=== PATIENT | female | born 1990 | race Caucasian/White ===

== ENCOUNTER → 2017-01-11 | Outpatient (CLI) | payer OTHER ==
--- NOTE | 2017-01-11 15:58 | RADIOLOGY REPORT PS360 ---
PROCEDURE: 2-D M-mode and color Doppler study INDICATIONS FOR THE TEST: Chest pain+ COPD Heart Murmur Tobacco Smoking Palpitations+ Fatigue+ Syncope Edema+ Hypertension Diabetes Mellitus Rheumatic Fever SOB JURADO Obesity Hyperlipidemia Family History HD Additional History Joint edema PATIENT INFORMATION HEIGHT: 68 WEIGHT: 270 GENDER: Female B/P: 144/92 2-D/M-MODE INTERPRETATION: 2-D MEASUREMENTS OBSERVED VALUES IN CMS Right Ventricular Dimension (RVDd) 2.2 Interventricular Septum (Thickness)(IVsd) 1.1 Left Ventricular Internal Dimensions(LVIDd) 5.1 Left Ventricular Posterior Wall (Thickness)(LVPWd) 1.1 Aortic Root 2.1 Aortic Cusp Separation 2.2 Left Atrial Dimensions (LAD) 4.1 2D 1. Left atrium is mildly enlarged, left ventricle is normal size, there is no concentric left ventricular hypertrophy, visually estimated ejection fraction 55% with no obvious regional wall motion abnormality. 2. The right atrium and right ventricle are mildly enlarged with normal contractility. 3. The aortic valve is minimally thickened and fibrosed. 4. The mitral and tricuspid valve leaflets are minimally thickened. 5. The pulmonic valve is not well visualized. 6. No significant pericardial effusion noted. DOPPLER INTERROGATION: Doppler interrogation of the aortic mitral and tricuspid valvular presence of mild mitral and tricuspid regurgitation, tricuspid and jet velocity insufficient for calculation of the right ventricular systolic pressure, diastolic parameters are within normal range. CONCLUSION: 1. Mild biatrial enlargement, normal left ventricular size, preserved left ventricular systolic function, visually estimated ejection fraction 55% with no obvious regional wall motion abnormality, diastolic parameters are within normal range. 2. Mildly enlarged right ventricle with normal contractility. 3. Mild mitral and tricuspid regurgitation. 4. No significant pericardial effusion noted.
== END ==
LOC: RT 10:42
DX: R00.2 Palpitations (principal); R21 Rash and other nonspecific skin eruption

== ENCOUNTER 2017-05-30 01:57 | Emergency (ER) | payer OTHER ==
[~2017-05-30] VITALS: Ht 175.3 cm; Wt 136.1 kg
--- OUTSIDE RECORDS SUMMARY | 2017-05-30 02:03 | External Medical Summary Rpt | CCD ---
Author Author , DEEP LOPEZ Address Unknown Phone [email or web address] Purpose Continuity of Care Document - 01-06-2017 through 2016 Results Labs Lab Lab Date Result Refere Interp Status Commen Order Detail nces retati t Range on Helicobacter pylori Ag [Presence] in Stool by Immunoassay (02-04-2017 08:30) Helicob Negativ Negativ complet acter 017 e e ed pylori 08:30 Ag [Presen ce] in Stool by Immunoa ssay
--- OUTSIDE RECORDS SUMMARY | 2017-05-30 02:03 | External Medical Summary Rpt | CCD ---
Author Author [employer] Organization [employer] Address Unknown Phone Unavailable Purpose Continuity of Care Document - through 2016
--- OUTSIDE RECORDS SUMMARY | 2017-05-30 02:03 | External Medical Summary Rpt | CCD ---
Author Author , DEEP LOPEZ Address Unknown Phone [email or web address] Purpose Continuity of Care Document - 01-06-2017 through 2016 Results Labs Lab Lab Date Result Refere Interp Status Commen Order Detail nces retati t Range on Helicobacter pylori Ag [Presence] in Stool by Immunoassay (02-04-2017 08:30) Helicob Negativ Negativ complet acter 017 e e ed pylori 08:30 Ag [Presen ce] in Stool by Immunoa ssay
--- OUTSIDE RECORDS SUMMARY | 2017-05-30 02:04 | External Medical Summary Rpt | CCD ---
Demographics Preferred Language Georgian Marital Status Unknown Religion Affiliation Unknown Race Unknown Ethnic Group Unknown Author Author , JESSICA LOPEZ Address Unknown Phone Immunization Unable to retrieve immunization data due to connection failure with Immunization Registry. Please try again later.
--- OUTSIDE RECORDS SUMMARY | 2017-05-30 02:04 | External Medical Summary Rpt | CCD ---
Demographics Preferred Language Portuguese Marital Status Unknown Yazidism Affiliation Unknown Race Unknown Ethnic Group Unknown Author Author , JESSICA LOPEZ Address Unknown Phone Immunization Unable to retrieve immunization data due to connection failure with Immunization Registry. Please try again later.
--- OUTSIDE RECORDS SUMMARY | 2017-05-30 02:05 | External Medical Summary Rpt ---
Author Author [employer], [employer] Organization [employer] Address Unknown Phone Unavailable Results Helicobacter pylori Ag [Presence] in Stool by Immunoassay Observa Value Referen Units Interpr Notes Date tion ce etation Range Helicob Negativ Negativ No No Perform Feb 04 acter e e informa informa ed at: 2016 pylori tion in tion in BN - 8:30 AM Ag source source [facility] [Presen data data ce] in [place] [address] by [facility] [place], [place] [address] Directo r: Alonso Oropeza MD, Phone: [phone] Antinuclear Antibodies, IFA Observa Value Referen Units Interpr Notes Date tion ce etation Range Nuclear . No No Negative Feb 03 Ab informati informati 2016 3:44 [Titer] on in on in <1:80Bord PM in Serum source source riaz by data data 1:80Posit Immunoflu radha orescence >1:80Perf ormed at: CB - [facility] [place] [address] [place] [id number] Circular Sawyer Helper: Mark Juarez PhD, Phone: [phone] CBC W Auto Differential panel in Blood Observa Value Referen Units Interpr Notes Date tion ce etation Range Basophils 0 - 0.2 K/MM3 Normal No Feb 03 informati 2016 3:44 [#/volume on in PM ] in source Blood by data Automated count Basophils 0.1 - 2.0 % Normal No Feb 03 informati 2016 3:44 leukocyte on in PM s in source Blood by data Automated count Eosinophi 0.0 - 0.4 K/mm3 Normal No Feb 03 ls informati 2016 3:44 [#/volume on in PM ] in source Blood by data Automated count Eosinophi 0.1 - % Normal No Feb 03 ls/100 12.0 informati 2016 3:44 leukocyte on in PM s in source Blood by data Automated count Granulocy 1.8 - 7.8 K/mm3 Normal No Feb 03 paul informati 2016 3:44 [#/volume on in PM ] in source Blood by data Automated count Granulocy 37.0 - % Normal No Feb 03 paul/100 80.0 informati 2016 3:44 leukocyte on in PM s in source Blood by data Automated count Hematocri 37.0 - % Normal No Feb 03 t [Volume 47.0 informati 2016 3:44 on in PM Fraction] source of Blood data Hemoglobi 12.2 - g/dL Normal No Feb 03 n 16.2 informati 2016 3:44 [Mass/vol on in PM ume] in source Blood data Lymphocyt 0.7 - 4.5 K/mm3 Normal No Feb 03 es informati 2016 3:44 [#/volume on in PM ] in source Unspecifi data ed specimen by Automated count Lymphocyt 10 - 50.0 % Normal No Feb 03 es 2016 3:44 [#/volume on in PM ] in source Unspecifi data ed specimen by Automated count Erythrocy 27 - 31.2 pg Normal No Feb 03 te mean ati 2016 3:44 corpuscul on in PM ar source hemoglobi data n [Entitic mass] Erythrocy 31.8 - g/dl Normal No Feb 03 te mean 35.4 informati 2016 3:44 corpuscul on in PM ar source hemoglobi data n concentra tion [Mass/vol ume] by Automated count Erythrocy 82.2 - fl Normal No Feb 03 te mean 97.8 informati 2016 3:44 corpuscul on in PM ar volume source [Entitic data volume] by Automated count Monocytes 0.1 - 1.0 K/mm3 Normal No Feb 03 informati 2016 3:44 [#/volume on in PM ] in source Blood by data Automated count Monocytes 1.7 - 9.3 % Normal No Feb 03 /100 informati 2017 3:44 leukocyte on in PM s in source Blood by data Automated count Platelet 7.4 - fl Low No Feb 03 mean 10.4 informati 2016 3:44 volume on in PM [Entitic source volume] data in Blood by Automated count Platelets 142 - 424 K/mm3 High No Feb 03 informati 2016 3:44 [#/volume on in PM ] in source Blood data Erythrocy 4.2 - 5.4 M/mm3 Normal No Aug 2 paul informati 2016 3:44 [#/volume on in PM ] in source Amniotic data fluid Erythrocy 11.5 - % Normal No Feb 03 te 17.5 informati 2016 3:44 distribut on in PM ion width source [Entitic data volume] by Automated count Leukocyte 4.8 - K/MM3 High No Feb 2 s 10.8 informati 2016 3:44 [#/volume on in PM ] in source Blood data Comprehensive metabolic 2000 panel in Serum or Plasma Observa Value Referen Units Interpr Notes Date tion ce etation Range Albumin/G 1.1 - 1.8 No Low No Feb 03 lobulin informati informati 2016 3:44 [Mass on in on in PM ratio] in source source Serum or data data Plasma Albumin 3.4 - 5.0 gm/dL Normal No Feb 03 [Mass/vol informati 2016 3:44 ume] in on in PM Serum or source Plasma data Alkaline 46 - 116 U/L Normal No Feb 03 phosphata informati 2016 3:44 se on in PM [Enzymati source c data activity/ volume] in Serum or Plasma Bilirubin 0.2 - 1.0 mg/dL Normal No Feb 03 .total informati 2016 3:44 [Mass/vol on in PM ume] in source Serum or data Plasma Urea 7 - 18 mg/dL Normal No Feb 03 nitrogen informati 2016 3:44 [Mass/vol on in PM ume] in source Serum or data Plasma Calcium 8.5 - mg/dL Normal No Feb 03 [Mass/vol 10.1 informati 2016 3:44 ume] in on in PM Serum or source Plasma data Chloride 98 - 107 mmoL/L Normal No Feb 03 [Moles/vo informati 2016 3:44 lume] in on in PM Serum or source Plasma data Carbon 21.0 - mmoL/L Normal No Feb 03 dioxide, 32.0 informati 2016 3:44 total on in PM [Moles/vo source lume] in data Serum or Plasma Creatinin 0.55 - mg/dL Normal No Feb 03 e 1.02 informati 2016 3:44 [Mass/vol on in PM ume] in source Serum or data Plasma Estimated 59- ML/MIN No REFERENCE Feb 2 informati RANGE: 2017 3:44 glomerula on in >60 PM r source ML/MIN/1. filtratio data 73 SQUARE n rate METERSIf (GF this patient is -A merican, then multiply theresult by 1.210. Globulin 1.3 - 3.2 gm/dL High No Feb 03 [Mass/vol informati 2016 3:44 ume] in on in PM Serum source data Glucose 74 - 106 mg/dL Normal No Feb 03 [Mass/vol informati 2016 3:44 ume] in on in PM Serum or source Plasma data Potassium 3.5 - 5.1 mmoL/L Normal No Feb 03 informati 2016 3:44 [Moles/vo on in PM lume] in source Serum or data Plasma Sodium 136 - 145 mmoL/L Normal No Feb 03 [Moles/vo informati 2016 3:44 lume] in on in PM Serum or source Plasma data Aspartate 15 - 37 U/L Low No Feb 03 informati 2016 3:44 aminotran on in PM sferase source [Enzymati data c activity/ volume] in Serum or Plasma Alanine 12 - 78 U/L Normal No Feb 03 aminotran informati 2016 3:44 sferase on in PM [Enzymati source c data activity/ volume] in Serum or Plasma Protein 6.4 - 8.2 gm/dL Normal No Feb 03 [Mass/vol informati 2016 3:44 ume] in on in PM Serum or source Plasma data Thyrotropin [Units/volume] in Serum or Plasma Observa Value Referen Units Interpr Notes Date tion ce etation Range Thyrotrop 0.358 - uIU/ml No No Feb 03 in 3.740 informati informati 2016 3:44 [Units/vo on in on in PM lume] in source source Serum or data data Plasma Streptolysin O Ab [Units/volume] in Serum Observa Value Referen Units Interpr Notes Date tion ce etation Range Streptoly 0.0 - IU/mL No Performed Jan 06 sin O Ab 200.0 informati at: CB 2017 5:43 [Units/vo on in - [facility] PM lume] in source Serum data [place] [address] [place], [place] [id number] Circular Sawyer Helper: Mark Juarez PhD, Phone: [phone]
--- OUTSIDE RECORDS SUMMARY | 2017-05-30 02:05 | External Medical Summary Rpt ---
[...] source [facility] [Presen data data ce] in [place] [id number] [facility] [place], [place] [address] Directo r: Alonso Oropeza MD, Phone: [phone] Antinuclear Antibodies, IFA Observa Value Referen Units Interpr Notes Date tion ce etation Range Nuclear . No No Negative Feb 03 Ab informati informati 2016 3:44 [Titer] on in on in <1:80Bord PM in Serum source source riaz by data data 1:80Posit Immunoflu radha orescence >1:80Perf ormed at: CB - [facility] [place] [address] [place] [id number] Manager Service Desk: Mark Juarez PhD, Phone: [phone] CBC W Auto Differential panel in [...] [facility] PM lume] in source Serum data [place] [address] [place], [place] [id number] Manager Service Desk: Mark Juarez PhD, Phone: [phone]
--- NOTE | 2017-05-30 02:11 | Emergency Room Report ---
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 N Clinical Suspician of Infection? Y Mental Status: 1 - Regular (Normal Baseline) Sepsis Risk:Possible Sepsis Risk Have you (or family members/close friends) recently traveled outside the [place]? N If Yes, where/when: Have you had exposure to infectious disease within the past month? N TB? Other? Specify: Comment Patient complains of swelling of the LEFT side of her neck with a sensation of sore throat and swelling in the throat. She has been having recurrent problems with urticaria and areas of what sounds like angioedema since November. She was initially seen here in the urgent treatment center for the symptoms on the bottom of her feet and was referred to a forklift operator. The forklift operator referred her to a software applications architect. Rheumatology referred her to an dispatcher service or work/pool coordinator, Dr. Stern in [place], who did ALLERGY testing. A cause has not been found. She has been on multiple different antihistamines, currently just takes Dolores as needed. She has been on prednisone a couple of times. This is the first time she has had the symptoms that seem to be affecting her throat. She has a large area of angioedema on the LEFT side of her neck which started tonight along with the feeling of swelling in her throat. Not much itching, she says the areas normally itch only towards the hand when they begin to resolve. ALLERGIES Coded Allergies: No Known Allergies (08/22/15) History Medical History General CAD? No Angina: No [place]: No Hypertension? No Hyperlipidemia? No CHF? No DVT? No PE? No COPD? No Asthma? No Anemia? No GERD? No Gastric ulcers? No GI Bleed? No Hernia? No Thyroid Problems? No Hypothyroidism? No CVA? No Seizures? No Diabetes? No Renal Insuffiency? No End Stage Renal Disease? No UTI? No Stones? No BPH? No GB Disease: No Nephritic Syndrome? No Asplenia? No Hepatitis? No Sickle Cell Disease? No Arthritis? No Migraines? No Cataracts? No Glaucoma? No MRSA? No HIV? No TB? No Anxiety? No Depression? No Cancer? No More? 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 She has come to the emergency department previously, not as a patient, when she had angioedema type lesions on her chin and scalp, viewed by me. She reports that these resolve the next day. The area currently on her neck is the same in appearance as the ones she had on her chin and scalp previously. Review of Systems All Other Systems Reviewed and Negative Constitutional denies fever ENT see HPI. Skin see HPI Physical Exam Vital Signs Vital Signs Date Time Temp Pulse Resp B/P Pulse O2 O2 Flow FiO2 Ox Delivery Rate 05/30 0416 98.5 79 14 131/80 97 05/30 0415 98.5 79 14 131/80 97 05/30 0312 83 14 121/63 96 05/30 0200 98.1 98 20 130/77 96 General Appearance no apparent distress Eye Exam - bilateral eye normal exam, bilateral eye PERRL, bilateral eye EOMI Ear, Nose, Throat Oropharynx appears normal. No edema of the oral mucous membranes or tongue. No edema of the lips. Neck there is an area of edema and mild erythema on the LEFT side of her neck consistent with an area of angioedema. Respiratory Status Yes: trachea midline, chest symmetrical, non tender chest. No: respiratory distress. Lung Sounds bilateral: normal breath sounds, lungs clear. 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 No Results/Orders Current Medication Orders Sig/Sony Start time Last Medication Dose Route Stop Time Status Admin Diphenhydramine HCl 25 MG ONCE ONE 05/30 230 DC 05/30 IV 05/30 231 023 Epinephrine HCl 0.3 MG ONCE ONE 05/30 230 DC 05/30 SC 05/30 231 023 Famotidine 20 MG ONCE ONE 05/30 230 DC 05/30 IV 05/30 231 023 Famotidine 0 .STK-MED ONE 05/30 230 DC IV Methylprednisolone 125 MG ONCE ONE 05/30 230 DC 05/30 Sodium Succinate IV 05/30 Sodium Chloride 10 ML PRN PRN 05/30 230 DCD IV 05/31 220 Epinephrine HCl 0 .STK-MED ONE 05/30 229 DC .ROUTE Methylprednisolone 0 .STK-MED ONE 05/30 229 DC Sodium Succinate .ROUTE Diphenhydramine HCl 0 .STK-MED ONE 05/30 228 DC .ROUTE Orders Procedure Date/time Status IV SALINE LOCK 05/30 221 Active CULTURE, THROAT 05/30 207 Active STREP SCREEN THROAT 05/30 207 Complete Progress - 4:00 AM: Symptoms improved. Departure Departure Disposition DC Home or Self Care(routine) Clinical Impression Primary Impression: Angioedema Qualifiers: Encounter type: initial encounter Qualified Code: T78.3XXA - Angioneurotic edema, initial encounter Secondary Impressions: Urticaria Condition STABLE Referrals Johny Khoury MD (Family) Patient Instructions DI for Angioedema, DI for Hives Additional Instructions Benadryl, 25 mg every 6 hours for 5 days Prednisone as prescribed. Pepcid 20 mg twice a day for 5 days. Additional instructions for ALLERGIC REACTION: See your physician as soon as possible for further evaluation. Return immediately if severe intolerable rash or itching, trouble breathing, or faintness. Prescriptions Current Visit Scripts Prednisone (Prednisone 20MG Tab) 40 MG PO DAILY #10 TAB ED Critical Care Critical Care No at [id number]
--- NOTE | 2017-05-30 02:11 | Emergency Room Report ---
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 N Clinical Suspician of Infection? Y Mental Status: 1 - Regular (Normal Baseline) Sepsis Risk:Possible Sepsis Risk Have you (or family members/close friends) recently traveled outside the [place]? N If Yes, where/when: Have you had exposure to infectious disease within the past month? N TB? Other? Specify: Comment Patient complains of swelling of the LEFT side of her neck with a sensation of sore throat and swelling in the throat. She has been having recurrent problems with urticaria and areas of what sounds like angioedema since November. She was initially seen here in the urgent treatment center for the symptoms on the bottom of her feet and was referred to a manager social media. The manager social media referred her to a commissioner of officials. Rheumatology referred her to an plate cleaner/instructional services specialist, Dr. Stern in [place], who did ALLERGY testing. A cause has not been found. She has been on multiple different antihistamines, currently just takes Dolores as needed. She has been on prednisone a couple of times. This is the first time she has had the symptoms that seem to be affecting her throat. She has a large area of angioedema on the LEFT side of her neck which started tonight along with the feeling of swelling in her throat. Not much itching, she says the areas normally itch only towards the hand when they begin to resolve. ALLERGIES Coded Allergies: No Known Allergies (08/22/15) History Medical History General CAD? No Angina: No ND: No Hypertension? No Hyperlipidemia? No CHF? No DVT? No PE? No COPD? No Asthma? No Anemia? No GERD? No Gastric ulcers? No GI Bleed? No Hernia? No Thyroid Problems? No Hypothyroidism? No CVA? No Seizures? No Diabetes? No Renal Insuffiency? No End Stage Renal Disease? No UTI? No Stones? No BPH? No GB Disease: No Nephritic Syndrome? No Asplenia? No Hepatitis? No Sickle Cell Disease? No Arthritis? No Migraines? No Cataracts? No Glaucoma? No MRSA? No HIV? No TB? No Anxiety? No Depression? No Cancer? No More? 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 She has come to the emergency department previously, not as a patient, when she had angioedema type lesions on her chin and scalp, viewed by me. She reports that these resolve the next day. The area currently on her neck is the same in appearance as the ones she had on her chin and scalp previously. Review of Systems All Other Systems Reviewed and Negative Constitutional denies fever ENT see HPI. Skin see HPI Physical Exam Vital Signs Vital Signs Date Time Temp Pulse Resp B/P Pulse O2 O2 Flow FiO2 Ox Delivery Rate 05/30 0416 98.5 79 14 131/80 97 05/30 0415 98.5 79 14 131/80 97 05/30 0312 83 14 121/63 96 05/30 0200 98.1 98 20 130/77 96 General Appearance no apparent distress Eye Exam - bilateral eye normal exam, bilateral eye PERRL, bilateral eye EOMI Ear, Nose, Throat Oropharynx appears normal. No edema of the oral mucous membranes or tongue. No edema of the lips. Neck there is an area of edema and mild erythema on the LEFT side of her neck consistent with an area of angioedema. Respiratory Status Yes: trachea midline, chest symmetrical, non tender chest. No: respiratory distress. Lung Sounds bilateral: normal breath sounds, lungs clear. 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 No Results/Orders Current Medication Orders Sig/Sony Start time Last Medication Dose Route Stop Time Status Admin Diphenhydramine HCl 25 MG ONCE ONE 05/30 230 DC 05/30 IV 05/30 231 023 Epinephrine HCl 0.3 MG ONCE ONE 05/30 230 DC 05/30 SC 05/30 231 023 Famotidine 20 MG ONCE ONE 05/30 230 DC 05/30 IV 05/30 231 023 Famotidine 0 .STK-MED ONE 05/30 230 DC IV Methylprednisolone 125 MG ONCE ONE 05/30 230 DC 05/30 Sodium Succinate IV 05/30 Sodium Chloride 10 ML PRN PRN 05/30 230 DCD IV 05/31 220 Epinephrine HCl 0 .STK-MED ONE 05/30 229 DC .ROUTE Methylprednisolone 0 .STK-MED ONE 05/30 229 DC Sodium Succinate .ROUTE Diphenhydramine HCl 0 .STK-MED ONE 05/30 228 DC .ROUTE Orders Procedure Date/time Status IV SALINE LOCK 05/30 221 Active CULTURE, THROAT 05/30 207 Active STREP SCREEN THROAT 05/30 207 Complete Progress - 4:00 AM: Symptoms improved. Departure Departure Disposition DC Home or Self Care(routine) Clinical Impression Primary Impression: Angioedema Qualifiers: Encounter type: initial encounter Qualified Code: T78.3XXA - Angioneurotic edema, initial encounter Secondary Impressions: Urticaria Condition STABLE Referrals Johny Khoury MD (Family) Patient Instructions DI for Angioedema, DI for Hives Additional Instructions Benadryl, 25 mg every 6 hours for 5 days Prednisone as prescribed. Pepcid 20 mg twice a day for 5 days. Additional instructions for ALLERGIC REACTION: See your physician as soon as possible for further evaluation. Return immediately if severe intolerable rash or itching, trouble breathing, or faintness. Prescriptions Current Visit Scripts Prednisone (Prednisone 20MG Tab) 40 MG PO DAILY #10 TAB ED Critical Care Critical Care No at [id number]
[2017-05-30] MEDS ORDERED: PREDNISONE20 MG PO (04:06)
[2017-05-30 04:16] VITALS: BP 131/80
== END 2017-05-30 04:22 | disposition home or self-care (01) ==
LOC: ER 01:57
DX: T78.3XXA Angioneurotic edema, initial encounter (principal)

== ENCOUNTER → 2017-06-03 | Outpatient (CLI) | payer OTHER ==
[~2017-06-03] MED LIST: PREDNISONE20 MG PO
[2017-06-03 17:21] LABS: HEMOGLOBIN 14.5 g/dL (12.2-16.2)
== END ==
LOC: LAB 17:01
PROVIDERS: Student in an Organized Health Care Education/Training Program
DX: L50.8 Other urticaria (principal)

== ENCOUNTER → 2017-06-11 | Outpatient (CLI) | payer OTHER ==
[2017-06-11 11:23] LABS: HEMOGLOBIN 13.8 g/dL (12.2-16.2); LYMPH # 3.9 K/mm3 (0.7-4.5)
[2017-06-11 15:47] LABS: BUN 8 mg/dL (7-18)
[2017-06-11 15:48] LABS: GFR (ESTIMATED) 87 ML/MIN (59-)
== END ==
LOC: LAB 11:07
PROVIDERS: Nurse Practitioner Family
DX: R21 Rash and other nonspecific skin eruption (principal)

== ENCOUNTER → 2017-06-12 | Outpatient (CLI) | payer OTHER ==
[2017-06-14 16:41] LABS: Antinuclear Antibodies, IFA Negative (.)
== END ==
LOC: LAB 10:40
PROVIDERS: Internal Medicine Adolescent Medicine
DX: L50.1 Idiopathic urticaria (principal); R10.13 Epigastric pain

== ENCOUNTER → 2017-06-14 | Outpatient (CLI) | payer OTHER | LOC: LAB 12:16 | DX: L50.1 Idiopathic urticaria (principal); R10.13 Epigastric pain ==